=== PATIENT | male | born 1990 | race African-American/Black ===

== ENCOUNTER 2016-10-22 17:09 | Emergency (ER) | payer OTHER ==
[~2016-10-22] VITALS: Ht 182.9 cm; Wt 87.7 kg
[2016-10-22] MEDS ORDERED: ALBU8HFA IH (17:49)
[2016-10-22] MEDS ORDERED: OLAN10TA3 PO (17:49)
[2016-10-22 19:41] VITALS: BP 117/73
== END 2016-10-22 20:39 | disposition home or self-care (01) ==
LOC: EMS 17:11
DX: L30.9 Dermatitis, unspecified (principal); J45.909 Unspecified asthma, uncomplicated; Z76.0 Encounter for issue of repeat prescription
CPT/HCPCS: 99282

== ENCOUNTER 2018-01-15 06:17 | Emergency (ER) | payer OTHER ==
[~2018-01-15] VITALS: Ht 185.4 cm; Wt 88.2 kg
[~2018-01-15 06:17] MED LIST: ALBU8HFA IH; OLAN10TA3 PO
[2018-01-15 07:22] VITALS: BP 141/88
== END 2018-01-15 07:25 | disposition home or self-care (01) ==
LOC: EMS 06:19
DX: F29 Unspecified psychosis not due to a substance or known physiological condition (principal); R21 Rash and other nonspecific skin eruption; J45.909 Unspecified asthma, uncomplicated
CPT/HCPCS: 99281

== ENCOUNTER 2022-10-09 15:41 | Emergency (ER) | payer OTHER ==
[~2022-10-09] VITALS: Ht 185.4 cm; Wt 72.7 kg
[~2022-10-09 15:41] MED LIST changes: -OLAN10TA3 PO; +OLAN10TA74 PO
[2022-10-09 15:49] VITALS: BP 128/74
[2022-10-09] MEDS ORDERED: METF-1211 PO (15:50)
[2022-10-09] MEDS ORDERED: OLAN5TAB30 PO (15:50)
[2022-10-09] MEDS ORDERED: SODIUM CHLORIDE 0.9% 1,000 ML IV ONE (16:15)
[2022-10-09] MEDS ORDERED: FLUT16SP NASAL (16:30)
== END 2022-10-09 16:47 | disposition left against medical advice (07) ==
LOC: EMS 15:48
DX: E11.65 Type 2 diabetes mellitus with hyperglycemia (principal); J45.909 Unspecified asthma, uncomplicated; F20.9 Schizophrenia, unspecified; I63.9 Cerebral infarction, unspecified; Z76.0 Encounter for issue of repeat prescription; Z53.29 Procedure and treatment not carried out because of patient's decision for other reasons
CPT/HCPCS: 99283; Z7502